=== PATIENT | female | born 1975 | race American Indian/Alaskan Native ===

== ENCOUNTER 2018-04-17 | Emergency (ER) | payer OTHER ==
[~2018-04-17] VITALS: Ht 162.6 cm; Wt 56.7 kg
[~2018-04-17] MED LIST: CYCL10 PO; HYDACE5 PO; NAPR500 PO; Norco 5-325 Ta1 EACH PO; RXCYCL10 PO; RXHYDACE PO; RXTRAM50 PO; TRAM50 PO
[2018-04-17] MEDS ORDERED: CEPH500 PO (01:36)
[2018-04-17] MEDS ORDERED: IBUP600 PO (01:36)
== END 2018-04-17 01:58 | disposition home or self-care (01) ==
LOC: ER
DX: L03.115 Cellulitis of right lower limb (principal); F17.200 Nicotine dependence, unspecified, uncomplicated
CPT/HCPCS: 99283

== ENCOUNTER 2019-02-05 11:53 | Inpatient (IN) | payer OTHER ==
[~2019-02-05] VITALS: Ht 162.6 cm; Wt 67.2 kg
[~2019-02-05 11:53] MED LIST changes: +ACET325 PO; +ACET500 PO; +Advil200 M1 PO; +CEFU500T30 PO; +CEPH500 PO; +GAVILAX17 GM PO; +IBUP400 PO; +IBUP600 PO
[2019-02-05 12:59] LABS: BASOPHILS ABSOLUTE AUTO 0.04 K/mm3 (0.00-0.23); BASOPHILS PERCENT AUTO 0 % (0-2); EOSINOPHILS ABSOLUTE AUTO 0.03 K/mm3 (0.00-0.68); EOSINOPHILS PERCENT AUTO 0 % (0-6); Hematocrit 44.2 % (33.0-51.0); Hemoglobin 14.6 g/dL (11.5-16.0); IMMATURE GRAN ABSOLUTE AUTO 0.11 K/mm3 (0.00-0.10); IMMATURE GRAN PERCENT AUTO 1 % (0-1); LYMPHOCYTES ABSOLUTE AUTO 0.91 K/mm3 (0.84-5.20); LYMPHOCYTES PERCENT AUTO 8 % (21-46); MONOCYTES ABSOLUTE AUTO 1.15 K/mm3 (0.16-1.47); MONOCYTES PERCENT AUTO 10 % (4-13); Mean Corpuscular HGB 31.5 pg (26.0-34.0); NEUTROPHILS ABSOLUTE AUTO 8.84 K/mm3 (1.96-9.15); NEUTROPHILS PERCENT AUTO 80 % (41-73); Platelet Count 416 K/mm3 (150-400); RDW Coefficient Variation 12.6 % (11.7-14.2); RDW Standard Deviation 44.3 fL (35.1-46.3); Red Blood Cell Count 4.64 M/mm3 (3.80-5.20); White Blood Cell Count 11.08 K/mm3 (4.00-11.30)
[2019-02-05 13:00] LABS: Mean Corpuscular Volume 95 fL (80-100)
[2019-02-05 13:19] LABS: Alanine Aminotransfer (ALT/SGP 37 U/L (12-78); Albumin, Blood 2.5 g/dL (3.4-5.0); Albumin/Globulin Ratio 0.5 (0.8-1.8); Alk Phos 242 U/L (50-136); Anion Gap 6 mmol/L (6-16); Aspartate Aminotrans (AST/SGOT 52 U/L (12-37); Bilirubin, Total 0.5 mg/dL (0.1-1.0); Blood Urea Nitrogen 6 mg/dL (8-24); Bun/Creatinine Ratio 12.2 (12.0-20.0); CO2, Blood 29 mmol/L (21-32); Calcium, Blood 8.8 mg/dL (8.5-10.1); Chloride, Blood 98 mmol/L (98-108); Creatinine, Blood 0.49 mg/dL (0.40-1.00); Globulin, Blood 4.7 g/dL (2.2-4.0); Glomerular Filtration Rate >60 (60-); Glucose, Blood 119 mg/dL (70-99); Sodium, Blood 133 mmol/L (136-145); Total Protein, Blood 7.2 g/dL (6.4-8.2)
--- NOTE | 2019-02-05 16:06 | NUR ---
INTO [facility] VIA [employer]. PT A&0X3. HISTORY AND ALLERGIES REVIEWED. NPO STATUS CONFIRMED. PT REPORTS 8/10 RIGHT ABDOMINAL PAIN. PT UNABLE TO TAKE DEEP BREATHS. THEREFORE, LUNGS DIMINISHED THROUGH OUT. UDN GIVEN PER DR. PRIEST' ORDERS. SERUM HCG SENT TO BE RUN STAT PT IS UNABLE TO VOID AT THIS TIME.
--- NOTE | 2019-02-05 20:40 | NUR ---
2039: NEW ADMIT S/P LAP APPY BY DR. CHURCHILL ARRIVES TO ROOM 231. SLIDE SHEET TRANSFERRED TO BED AND PT TOLERATED FAIR. NG TO LIWS, AND ALLOWED ICE CHIPS. FAMILY AT BEDSIDE. PT AND FAMILY ORIENTED TO ROOM, BED, FALL PRECAUTIONS AND CALL SYSTEM.
[2019-02-06 04:39] LABS: BASOPHILS ABSOLUTE AUTO 0.03 K/mm3 (0.00-0.23); BASOPHILS PERCENT AUTO 0 % (0-2); EOSINOPHILS PERCENT AUTO 0 % (0-6); Hematocrit 37.9 % (33.0-51.0); Hemoglobin 12.5 g/dL (11.5-16.0); IMMATURE GRAN ABSOLUTE AUTO 0.16 K/mm3 (0.00-0.10); IMMATURE GRAN PERCENT AUTO 1 % (0-1); LYMPHOCYTES ABSOLUTE AUTO 1.14 K/mm3 (0.84-5.20); LYMPHOCYTES PERCENT AUTO 8 % (21-46); MONOCYTES PERCENT AUTO 7 % (4-13); Mean Corpuscular Volume 94 fL (80-100); Mean Platelet Volume 9.8 fL (9.1-12.4); NEUTROPHILS ABSOLUTE AUTO 11.83 K/mm3 (1.96-9.15); NEUTROPHILS PERCENT AUTO 84 % (41-73); Platelet Count 411 K/mm3 (150-400); RDW Coefficient Variation 12.7 % (11.7-14.2); Red Blood Cell Count 4.03 M/mm3 (3.80-5.20); White Blood Cell Count 14.16 K/mm3 (4.00-11.30)
[2019-02-06 04:57] LABS: Anion Gap 5 mmol/L (6-16); Blood Urea Nitrogen 6 mg/dL (8-24); Bun/Creatinine Ratio 10.5 (12.0-20.0); CO2, Blood 30 mmol/L (21-32); Calcium, Blood 7.9 mg/dL (8.5-10.1); Chloride, Blood 101 mmol/L (98-108); Creatinine, Blood 0.57 mg/dL (0.40-1.00); Glomerular Filtration Rate >60 (60-); Glucose, Blood 160 mg/dL (70-99); Potassium, Blood 3.6 mmol/L (3.5-5.5); Sodium, Blood 136 mmol/L (136-145)
--- NOTE | 2019-02-06 07:43 | NUR ---
SUMMARY: POD 1 RUPTURED LAP APPY WITH SCOOTER TO LLQ ABD AND NG TO LIWS. DR. CHURCHILL COMPLETED PROCEDURE. VSS, AFEBRILE, ROOM AIR, PAIN WELL CONTROLLED WITH 1MG IV DILAUDID X3 THIS SHIFT. PT UP WITH 1 SBA TO BSC AND TOLERATES FAIR. ICE CHIPS AND POPSICLES PO, 300ML DARK BROWN LIQUID NG DRAINAGE. CONTINUE IV ZOSYN AND ENCOURAGE OOB ACTIVITY TOLERATED.
--- NOTE | 2019-02-06 15:30 | NUR ---
Pt gave verbal consent for this nurse to treat and access records for 02-07-2019
--- NOTE | 2019-02-06 20:00 | NUR ---
2000: PT SL AND NG CLAMPED SO THAT SHE MAY AMBULATE HALLS WITH FAMILY. PT STATES PAIN WELL CONTROLLED AT THIS TIME AND DENIES FURTHER NAUSEA. SELF PROPELS WC AND VISITORS AT SIDE.
--- NOTE | 2019-02-07 00:16 | NUR ---
0016: PT RESTING COMFORTABLY IN BED. NG REMAINS CLAMPED AND PT CONTINUES TO DENY NAUSEA; TOLERATED 1 POPSICLE WELL. BOWEL TONES HYPOACTIVE BUT PRESENT IN ALL 4 QUADS; PT DENIES PASSING FLATUS YET. PAIN WELL CONTROLLED AT THIS TIME DENIES NEED FOR PRN PAIN MEDS.
--- NOTE | 2019-02-07 05:46 | NUR ---
0546: PT C/O MILD NAUSEA AND PAIN. NG REATTATCHED WITH LIWS AND PT REPOSITIONED FOR COMFORT ON LEFT SIDE.
--- NOTE | 2019-02-07 07:41 | NUR ---
SUMMARY: POD [address] CHURCHILL. VSS, AFEBRILE, ROOM AIR. PAIN WELL CONTROLLED WITH 1MG IV DILAUDID AND IV TORDAL. PT UP WITH SBA AMBULATING HALLS WITH FAMILY AND TOLERATES WELL. BOWEL TONES X4 AND BEGAN PASSING MINISCULE AMOUNT OF GAS LATE IN SHIFT. PT NG CLAMPED 02/06/19 @ 2000 TO APPROXIMATELY 0500 THIS MORNING; TOLERATING POPSICLES AND ICE CHIPS. CONTINUE IV ZOSYN AND ENCOURAGE OOB ACTIVITY.
--- NOTE | 2019-02-07 19:32 | NUR ---
PT OUTSIDE OF ROOM DURING ROUNDING AT THIS TIME. WILL AWAIT RETURN AND TX PER ORDERS.
--- NOTE | 2019-02-07 19:37 | NUR ---
SHIFT SUMMARY PAIN HAS BEEN MANAGED WITH IV DILAUDID. SCOOTER DRAIN CONTINUES TO PUT OUT LARGE AMOUNTS OF SEROSANGUINOUS FLUID. PT GOES OUTSIDE FREQUENTLY. FAMILY HAS BEEN PRESENT T/O THE DAY. VSS. REPORT GIVEN TO ANGIE VALVERDE.
[2019-02-08 06:00] LABS: Hematocrit 36.1 % (33.0-51.0); Hemoglobin 11.6 g/dL (11.5-16.0); Mean Corpuscular HGB 31.1 pg (26.0-34.0); Mean Corpuscular HGB Conc 32.1 g/dL (31.5-36.5); Mean Platelet Volume 9.7 fL (9.1-12.4); Platelet Count 421 K/mm3 (150-400); RDW Coefficient Variation 13.1 % (11.7-14.2); RDW Standard Deviation 46.9 fL (35.1-46.3); Red Blood Cell Count 3.73 M/mm3 (3.80-5.20); White Blood Cell Count 10.68 K/mm3 (4.00-11.30)
[2019-02-08 06:01] LABS: Mean Corpuscular Volume 97 fL (80-100)
[2019-02-08 06:16] LABS: Anion Gap 6 mmol/L (6-16); Blood Urea Nitrogen 7 mg/dL (8-24); Bun/Creatinine Ratio 11.3 (12.0-20.0); CO2, Blood 29 mmol/L (21-32); Calcium, Blood 7.8 mg/dL (8.5-10.1); Chloride, Blood 103 mmol/L (98-108); Creatinine, Blood 0.62 mg/dL (0.40-1.00); Glomerular Filtration Rate >60 (60-); Glucose, Blood 103 mg/dL (70-99); Potassium, Blood 3.1 mmol/L (3.5-5.5); Sodium, Blood 138 mmol/L (136-145)
[2019-02-08 06:22] LABS: BASOPHILS PERCENT MAN 0 % (0-2); EOSINOPHILS PERCENT MAN 0 % (0-6); LYMPHOCYTES ABSOLUTE MAN 0.85 K/mm3 (0.84-5.20); LYMPHOCYTES PERCENT MAN 8 % (21-46); METAMYELOCYTE PERCENT MAN 1 % (0-0); MONOCYTES ABSOLUTE MAN 0.96 K/mm3 (0.16-1.47); MONOCYTES PERCENT MAN 9 % (4-13); MYELOCYTE PERCENT MAN 1 % (0-0); NEUTROPHILS ABSOLUTE MAN 8.65 K/mm3 (1.96-9.15); SEG NEUTROPHILS PERCENT MAN 81 % (41-73); TOTAL CELLS COUNTED 100
--- NOTE | 2019-02-08 06:34 | NUR ---
SHIFT SUMMARY PT IS POD3 APPENDECTOMY. VSS, 02 SATS REMAINED >90% ON RA. PT HAS NG TUBE IN PLACE DRAINING CLEAR FLUID, TOLERATING ICE CHIPS AND POPSICLES. PT IS INDEPENDENT IN ROOM, VOIDING INDEPENDENTLY. PT REP PASSING FLATUS TODAY, NO BM. PT REP ADEQUATE PAIN MANAGEMENT WITH MEDICATION, NO NAUSEA THIS SHIFT. SCOOTER DRAIN IN L ABDOMEN DRAINING SEROSANGUINOUS FLUID. WILL CONTINUE TO MONITOR.
--- NOTE | 2019-02-08 07:00 | NUR ---
REPORT FROM RADHA VALVERDE. ASSUMED PT CARE.
--- NOTE | 2019-02-08 07:09 | NUR ---
PT APPEARS TO BE RESTING. NADN.
--- NOTE | 2019-02-08 07:32 | NUR ---
PT RESTING COMFORTABLY. PT NG CANNISTER AT 350ML. ASSESSMENT CHARTED.
--- NOTE | 2019-02-08 08:15 | NUR ---
DR CHURCHILL TO ROOM FOR EVAL. PLAN TO CLAMP NG, CHANGE DRESSINGS AND RE-EVAL NG AT 1400. PT AGREEABLE.
--- NOTE | 2019-02-08 08:35 | NUR ---
NEW 18G TO RIGHT FA, DRESSING TO ABD CHANGED. BANDAID PLACED TO LOWER ABD INCISION. DRESSING TO SCOOTER DRAIN INSERTION SITE CHANGED. PT MEDICATED PER EMAR.
--- NOTE | 2019-02-08 09:45 | NUR ---
IVF AT 50ML/HR STARTED. PT MEDICATED WITH ORAL POTASSIUM PER EMAR.
--- NOTE | 2019-02-08 10:25 | NUR ---
CARE ASSUMED OF THIS PATIENT AT APPROXIMATELY 0915. PT ASSESSED BY THIS RN. DOCUMENTATION BY ROBBY RUDOLPH RN REVIEWED; THIS RN AGREES WITH DOCUMENTATION. PT RATED HER PAIN AT 7/10 AT THIS TIME. SHE DENIED NEED FOR PAIN MEDICATION AND REPORTED SHE WANTED TO REST. SCOOTER DRAIN WAS EMPTIED, STILL PUTTING OUT SEROSANGUINOUS FLUID. WILL CONTINUE TO MONITOR.
--- NOTE | 2019-02-08 16:31 | NUR ---
PT REPORTS SHE HAS NOT PASSED ANY FLATUS THIS SHIFT. SHE DENIES NAUSEA SINCE NG TUBE WAS CLAMPED. WHEN NG TUBE WAS HOOKED BACK TO SUCTION PT HAD <50ML OUT. DR. CHURCHILL NOTIFIED. WILL CONTINUE WITH PLAN TO REMOVE NG TUBE.
--- NOTE | 2019-02-08 16:50 | NUR ---
NG TUBE REMOVED AT 1630.
--- NOTE | 2019-02-08 16:50 | NUR ---
SHIFT SUMMARY PT HAS BEEN OUT OF BED FREQUENTLY THIS SHIFT. FAMILY AT THE BEDSIDE. NG TUBE CLAMPED, PT TOLERATED WELL, NG TUBE WAS REMOVED. PT IS INDEPENDENT IN THE ROOM. TOLERATING SIPS, CHIPS AND POPCICLES. PAIN MANAGED WITH IV PAIN MEDICATION. VSS. WILL MONITOR UNTIL REPORT.
--- NOTE | 2019-02-08 19:15 | NUR ---
PT AMBULATED OFF UNIT WITH FAMILY.
--- NOTE | 2019-02-09 05:20 | NUR ---
POD 4 LAP APPY. DID WELL DURING NIGHT. PAIN IS MANAGED WELL WITH IV DILAUDID Q4P. HAS BEEN TOLERATING SMALL AMTS OF ICE CHIPS AND SIPS. ABD LAP SITES DRY INTACT. SCOOTER IS DRAINING PALE YELLOW FLUID. CONT IVF AND IV ABX. PT AMBULATES INDEPENDENTLY IN ROOM. VOIDING WELL BUT STILL DENIES FLATUS. BT + T/O. CALL LIGHT IN REACH AND WILL REPORT OFF TO NEXT SHIFT.
--- NOTE | 2019-02-09 17:58 | NUR ---
SHIFT SUMMARY NO ACUTE CHANGES THIS SHIFT. VSS. PT RECEIVING TORADOL AND IV DILAUDID FOR PAIN NEEDED. PT DEEPAK SMALL SIPS OF CLEARS AND ICE CHIPS. PT DID START PASSING GAS THIS SHIFT. INDEP IN ROOM. IVF INFUSING PER ORDERS. LAP SITES ARE CDI AND SCOOTER PRODUCING SEROUS/YELLOW DRAINAGE. USES CALL LIGHT APPROPRIATELY.
--- NOTE | 2019-02-10 05:56 | NUR ---
SUMMARY: PT IS POD5 FOR A LAP APPY. NO ACUTE CHANGE TONIGHT. SURGICAL SITES WNL.. PT REPORTS PASSING GAS, NO BM THIS SHIFT. PAIN WELL MANAGED WITH 1 MG DILAUDID Q4-Q5. TOLERATING SIPS OF CLEAR LIQUIDS AND ICE CHIPS. UP INDEPENDENTLY, CONTINUING ANTIBIOTICS. VSS,A/O. NO SAFETY CONCERNS AT THIS TIME.
--- NOTE | 2019-02-10 17:26 | NUR ---
SHIFT SUMMARY. PT AMBULATING TO BATHROOM, REPORTS PASSING GAS, NO BM. PT URINATING DURING SHIFT. PT C/O ABDOMINAL AND HEAD PAIN DURING SHIFT, MEDICATED WITH DILAUDID X3 AND TORODOL X2. PAIN WORSENS AFTER PT GOES OUTSIDE. PT ADVANCING TO FULL LIQUID DIET PER MD, DUE TO PASSING GAS. PT ALERT AND ORIENTED, CALLING APPROPRIATLY. MEDICATED FOR NAUSEA X1.
--- NOTE | 2019-02-10 18:46 | NUR ---
PT OUT OF SHOWER DRESSING TO SCOOTER DRAIN CHANGED, SCANT DISCHARGE ON OLD DRESSING.
--- NOTE | 2019-02-11 06:05 | NUR ---
SUMMARY: NO CHANGE TONIGHT. VSS, A/O, INDEPENDENT IN ROOM. PT REPORTS PASSING GAS, NO BM THIS SHIFT. TOTAL OF 100ML OUT FROM SCOOTER DRAIN OF SEROUS FLUID. SURGICAL SITES WNL. PT WOULD WAKE UP PAINFUL TONIGHT, RATED PAIN 8-9/10. 1MG DILAUDID PRN. FLUID AND ANTIBIOTICS INFUSED. NO ACUTE SAFETY CONCERNS AT THIS TIME
--- NOTE | 2019-02-11 11:42 | NUR ---
DR ALEGRE HERE RECENTLY. PT OUT OF ROOM AT THIS TIME. DISCUSSED PT'S STATUS. REPORTS MAY ADVANCE DIET. DISCUSSED PAIN MEDICATION.
--- NOTE | 2019-02-11 11:45 | NUR ---
PT OUT OF ROOM AT THIS TIME.
--- NOTE | 2019-02-11 16:50 | NUR ---
DR ALEGRE CALLED RECENTLY FOR REGARDING PT'S PAIN AND HER TOLERATING HER DIET. SEE ORDERS.
--- NOTE | 2019-02-11 17:35 | NUR ---
SHIFT SUMMARY PT HAS BEEN OUT OF ROOM A LOT TODAY. AMBULATING ON OWN WITH WALKER. PAIN IS BEING MANAGED WITH MEDICATION PER ORDERS. SEE EMAR. PT HAS BEEN TOLERATING SMALL AMOUNTS OF FOOD TODAY. REPORTS PASSING GAS BUT NO BM. DR CAME IN TO SEE PT TODAY BUT PT WAS OUT OF ROOM AT THE TIME. PT HAD SEVERAL VISITORS TODAY.
--- NOTE | 2019-02-12 04:33 | NUR ---
SHIFT SUMMARY PT A&O X4 T/O SHIFT. NO ACUTE CHANGES. POD#8 APPENDECTOMY. LAP SITES CDI; SCOOTER TO LLQ PUT OUT 90ML SEROUS DRAINAGE. SOILED DRAIN SPONGE DRESSING REMOVED AND NEW DRAIN SPONGE PLACED. ABD SOFT; PAIN MANAGED PER EMAR; PT REPORTS FLATUS; NO BM; PT DENIES NAUSEA; TOLERATING REGULAR DIET. PT INDEPENDENT OFF UNIT WITH FAMILY X1. CALL LIGHT IN REACH; PT DEMONSTRATES USE. WCTM UNTIL REPORT TO DAY SHIFT RN.
--- NOTE | 2019-02-12 08:00 | NUR ---
ROUNDED ON PT. PT OUT OF ROOM. DR CHURCHILL UP TO SEE HER. STATES SHE WAS OUT OF ROOM DURING WEEKEND WHEN DR. KENNY ROUNDED. PAGED PT BACK UP TO ROOM
--- NOTE | 2019-02-12 08:40 | NUR ---
AMINISTERED NEW MEDS MIRALAX AND IBUPROFEN [address] CHURCHILL REMOVED SCOOTER EARLIER. GAUZE DRESSING REMAINS DRY NO OOZING OBSERVED.
[2019-02-12] MEDS ORDERED: IBUP600 PO (08:59)
[2019-02-12] MEDS ORDERED: Norco 5-325 Ta1 EACH PO (08:59)
[2019-02-12] MEDS ORDERED: GAVILAX17 GM PO (09:02)
--- NOTE | 2019-02-12 10:56 | NUR ---
PT NOT IN ROOM. WILL GO OVER DC PAPERWORK WHEN SHE RETURNS. SOCIAL SERVICE WONDERING ABOUT PCP. IF NOT WILL SET ONE UP
--- NOTE | 2019-02-12 11:20 | NUR ---
discharge instructions reviewed with pt verbalized rx given no acute changes pt stated she has been seen by harsha [place] ss notified amb to car with daughter
== END 2019-02-12 11:21 | disposition home or self-care (01) | DRG 340 ==
LOC: ER 11:53 → SURS 15:47
PROVIDERS: Physician Assistant; ADMIT Surgery
PROC: 0W9G4ZX Drainage of Peritoneal Cavity, Percutaneous Endoscopic Approach, Diagnostic (ICD-10-PCS; 2019-02-05)
PROC: 0DTJ4ZZ Resection of Appendix, Percutaneous Endoscopic Approach (ICD-10-PCS; principal; 2019-02-05 16:00)
DX: K35.33 Acute appendicitis with perforation, localized peritonitis, and gangrene, with abscess (principal); E87.6 Hypokalemia; K59.00 Constipation, unspecified; F17.210 Nicotine dependence, cigarettes, uncomplicated
CPT/HCPCS: 36415; 74177; 80048; 80053; 83690; 84703; 85025; 88304; 96361; 96365-59; 96375; 96376; 99285-25; A9270-GY; C9113; J1100; J1170; J1650; J1885; J2250; J2405; J2543; J2704; J2710; J3010; J7050; J7120; Q9967

== ENCOUNTER 2019-05-17 08:56 | Emergency (ER) | payer OTHER ==
[~2019-05-17] VITALS: Ht 162.6 cm; Wt 56.7 kg
[2019-05-17] MEDS ORDERED: IBUP600 PO (10:46)
[2019-05-17] MEDS ORDERED: CYCL10 PO (10:46)
== END 2019-05-17 11:05 | disposition home or self-care (01) ==
LOC: ER 08:56
DX: S16.1XXA Strain of muscle, fascia and tendon at neck level, initial encounter (principal); F17.210 Nicotine dependence, cigarettes, uncomplicated; X58.XXXA Exposure to other specified factors, initial encounter
CPT/HCPCS: 93005; 93010; 96372; 99283-25; A9270-GY; J1885

== ENCOUNTER 2020-06-23 20:34 | Emergency (ER) | payer OTHER ==
[~2020-06-23] VITALS: Ht 162.6 cm; Wt 61.2 kg
[~2020-06-23 20:34] MED LIST changes: +Macrobid 100 M100 MG PO; +ONDA4ODT SL
== END 2020-06-23 23:49 | disposition left against medical advice (07) ==
LOC: ER 20:34
DX: R22.0 Localized swelling, mass and lump, head (principal)
CPT/HCPCS: 99282

== ENCOUNTER 2021-08-15 16:58 | Emergency (ER) | payer OTHER ==
[~2021-08-15] VITALS: Ht 162.6 cm; Wt 61.2 kg
[2021-08-15] MEDS ORDERED: GABA300 PO (19:10)
[2021-08-15] MEDS ORDERED: Robaxin750 MG PO (19:10)
[2021-08-15] MEDS ORDERED: IBUP800 PO (19:10)
[2021-08-15] MEDS ORDERED: LIDO700A20 TOP (19:10)
== END 2021-08-15 19:15 | disposition home or self-care (01) ==
LOC: ER 16:58
DX: M54.16 Radiculopathy, lumbar region (principal); F17.200 Nicotine dependence, unspecified, uncomplicated
CPT/HCPCS: 96372; 99284; A9270; J1885

== ENCOUNTER 2022-11-25 21:20 | Emergency (ER) | payer OTHER ==
[~2022-11-25] VITALS: Ht 162.6 cm; Wt 59.0 kg
[~2022-11-25 21:20] MED LIST changes: +ASPI81CH PO; +ATOR40TA PO; +CLOP75 PO; +GABA300 PO; +IBUP800 PO; +LIDO700A20 TOP; +NITR.4SL SL; +ONDA4ODT MM; +Robaxin750 MG PO
[2022-11-25 22:14] LABS: BASOPHILS ABSOLUTE AUTO 0.04 K/mm3 (0.00-0.23); BASOPHILS PERCENT AUTO 0 % (0-2); EOSINOPHILS ABSOLUTE AUTO 0.03 K/mm3 (0.00-0.68); EOSINOPHILS PERCENT AUTO 0 % (0-6); Hematocrit 37.7 % (33.0-51.0); Hemoglobin 13.3 g/dL (11.5-16.0); IMMATURE GRAN ABSOLUTE AUTO 0.05 K/mm3 (0.00-0.10); IMMATURE GRAN PERCENT AUTO 0 % (0-1); LYMPHOCYTES ABSOLUTE AUTO 1.19 K/mm3 (0.84-5.20); LYMPHOCYTES PERCENT AUTO 9 % (21-46); MONOCYTES ABSOLUTE AUTO 0.94 K/mm3 (0.16-1.47); MONOCYTES PERCENT AUTO 7 % (4-13); Mean Corpuscular HGB 31.7 pg (26.0-34.0); Mean Corpuscular HGB Conc 35.3 g/dL (31.5-36.5); Mean Corpuscular Volume 90 fL (80-100); Mean Platelet Volume 10.4 fL (9.1-12.4); NEUTROPHILS ABSOLUTE AUTO 10.58 K/mm3 (1.96-9.15); NEUTROPHILS PERCENT AUTO 83 % (41-73); Platelet Count 298 K/mm3 (150-400); RDW Coefficient Variation 11.9 % (11.7-14.2); RDW Standard Deviation 38.8 fL (35.1-46.3); White Blood Cell Count 12.83 K/mm3 (4.00-11.30)
[2022-11-25 22:39] LABS: Albumin, Blood 3.1 g/dL (3.4-5.0); Albumin/Globulin Ratio 0.7 (0.8-1.8); Bilirubin, Total 0.6 mg/dL (0.1-1.0); Bun/Creatinine Ratio 18.6 (12.0-20.0); Calcium, Blood 9.2 mg/dL (8.5-10.1); Creatinine, Blood 0.54 mg/dL (0.40-1.00); Globulin, Blood 4.4 g/dL (2.2-4.0); Total Protein, Blood 7.5 g/dL (6.4-8.2)
[2022-11-26] MEDS ORDERED: Norco 5-325 Ta1 EACH PO (00:14)
[2022-11-26] MEDS ORDERED: IBUP600 PO (00:14)
== END 2022-11-26 00:36 | disposition home or self-care (01) ==
LOC: ER 21:20
PROVIDERS: Student in an Organized Health Care Education/Training Program
DX: M54.2 Cervicalgia (principal); M54.9 Dorsalgia, unspecified; I25.2 Old myocardial infarction; E78.5 Hyperlipidemia, unspecified; Z79.82 Long term (current) use of aspirin; Z79.899 Other long term (current) drug therapy; Z87.891 Personal history of nicotine dependence; Z95.5 Presence of coronary angioplasty implant and graft
CPT/HCPCS: 36415; 80053; 84484; 85025; 93005; 93010; 99283-25; A9270